=== PATIENT | female | born 1990 | race Caucasian/White ===

== ENCOUNTER 2021-08-26 06:19 | Emergency (ER) | payer SELFPAY ==
[2021-08-26] VITALS (8 sets, daily range): BP systolic 127–140; BP diastolic 68–92; PULSE 83–107; RESP 17–26; TEMP 36.4; O2SAT 98–100
--- NOTE | ~2021-08-26 | XR_ITS ---
EXAMINATION: XR chest 2V DATE: 08/26/2021 06:58 INDICATION: Heart fluttering TECHNIQUE: PA and lateral views of the chest were obtained. COMPARISON: Chest radiograph dated 08/08/2010 FINDINGS: Eventration along both the left and right sides of the diaphragm. Mild linear discoid atelectasis at the right lung base. No other airspace opacities, pulmonary edema, pleural effusion or pneumothorax. The cardiomediastinal silhouette is normal. Thoracolumbar 2 dextroscoliosis with upper thoracic levos coliosis. IMPRESSION: 1. No acute cardiopulmonary disease. Reviewed, dictated and finalized at location A.
--- NOTE | 2021-08-26 06:26 | ECG_ITS ---
Measurements Intervals [place] Rate: 106 P: 61 VT: 159 QRS: 70 QRSD: 104 T: 12 QT: 347 QTc: 461 Interpretive Statements SINUS TACHYCARDIA LEFT ATRIAL ENLARGEMENT INCOMPLETE RIGHT BUNDLE BRANCH BLOCK BORDERLINE T WAVE ABNORMALITY- ANTEROLAT/INF LEADS BASELINE ARTIFACT- I, II BORDERLINE ECG Electronically Signed On 08-26-2021 9:16:38 CDT by Ced Whipple D.O.
[2021-08-26 06:52] LABS: Basophils Percent Auto 0.4 % (0.2-1.2); Eosinophils Absolute Auto 0.1 K/mm3 (0-0.3); Eosinophils Percent Auto 1.7 % (0-4.4); Hematocrit 39.8 % (37.0-47.0); Hemoglobin 12.8 g/dL (12.0-15.0); Immature Granulocyte Absolute 0.02 K/mm3 (0.00-0.031); Immature Granulocyte Percent A 0.3 % (0-0.5); Lymphocytes Absolute Auto 1.67 K/mm3 (0.9-3.2); Lymphocytes Percent Auto 22.1 % (18.3-44.2); Mean Corpuscular HGB Conc 32.2 g/dl (32-36); Mean Corpuscular Hemoglobin 29.2 pg (26-34); Mean Corpuscular Volume 90.7 fl (80-100); Mean Platelet Volume 11.8 fl (7.4-10.4); Monocytes Absolute Auto 0.6 K/mm3 (0.1-0.6); Monocytes Percent Auto 8.1 % (2.6-8.5); Neutrophils Absolute Auto 5.1 K/mm3 (1.3-6.7); Neutrophils Percent Auto 67.4 % (45.5-73.1); Platelet Count Result 200 k/mm3 (150-375); Red Blood Count 4.39 M/mm3 (4.2-5.4); Red Cell Distribution Width 12.8 % (11.5-14.5); White Blood Count 7.5 K/mm3 (4.5-10.0)
[2021-08-26 07:03] LABS: Alanine Aminotransferase 19 U/L (6-35); Albumin Level 4.3 g/dL (3.5-5.1); Alkaline Phosphatase 74 U/L (38-126); Anion Gap 7 mmol/L (8-16); Aspartate Amino Transferase 26 U/L (14-36); Bilirubin,Total 0.4 mg/dL (0.2-1.3); Blood Urea Nitrogen 10 mg/dL (7-17); Calcium 8.8 mg/dL (8.4-10.2); Carbon Dioxide 24 mmol/L (22-30); Chloride 104 mmol/L (98-107); Estimated CRCL calculation 130 ml/min; Estimated Glomerular Filt Rate > 60; Glucose 112 mg/dL (65-110); Lipase 41 U/L (23-300); Potassium 3.6 mmol/L (3.4-5.0); Prothrombin Time 12.9 Seconds (11.1-14.7); Sodium 135 mmol/L (137-145)
[2021-08-26 07:04] LABS: Partial Thromboplastin Time 26.8 SECONDS (22.3-36.8)
[2021-08-26 07:14] LABS: Troponin I < 0.012 ng/mL (0.000-0.034)
--- NOTE | 2021-08-26 07:15 | ED.GENADULT ---
HPI - General Adult General Chief complaint: Arrhythmia/Palpitations Stated complaint: palpitations Time Seen by Provider: 08/26/21 06:52 History of Present Illness HPI narrative: 31-year-old female presenting to the emergency department for evaluation after having a suspected panic attack this morning. Patient states she showed up to work at 430 and had onset of an anxious feeling. Patient felt that she was breathing faster heart rate was increased and that she had numbness and tingling of her hands. Patient states she does have a history of anxiety but that she has never had a full panic attack. Patient states she feels significantly improved and denies any symptoms at this time. Patient has taken phentermine Related Data Allergies Allergy/AdvReac Type Severity Reaction Status Date / Time No Known Allergies Allergy Verified 08/26/21 06:36 Review of Systems Review of Systems: CONSTITUTIONAL: Denies fever, chills, or sweats. EYES: Denies visual changes, redness, or discharge. ENT: Denies rhinorrhea, congestion, sore throat, or otalgia. CARDIOVASCULAR: See HPI. RESPIRATORY: Denies cough or dyspnea. GASTROINTESTINAL: Denies abdominal pain, nausea, vomiting, or diarrhea. GENITOURINARY: Denies dysuria or hematuria. SKIN: Denies rash or itching. MUSCULOSKELETAL: Denies back pain, joint pain, or myalgia. NEUROLOGIC: Denies headache, numbness, or weakness. PSYCHIATRIC: Anxiety Exam Narrative: APPEARANCE: Well appearing, no pain, no distress, well-nourished. HEAD: normocephalic, atraumatic. EYES: PERRLA/EOMI, conjunctivae clear. NOSE: Normal no drainage EARS:TMS clear with good light reflex. THROAT: Pharynx clear, no exudate. NECK: Supple. No adenopathy, no masses. RESPIRATORY: Airway patent, respirations nonlabored. Clear to auscultation bilaterally, no rales, rhonchi, wheezing. CARDIOVASCULAR: Regular rate and rhythm without murmurs rubs or gallops. ABDOMINAL: Soft, nontender, nondistended, normal bowel sounds MUSCULOSKELETAL: Moves all extremities. Strength/ROM intact, No edema, No calf tenderness. NEURO: Alert. Cranial nerves II through XII intact. Grossly intact SKIN: Warm, dry. Normal Color Course Course Emergency Course: Patient felt back to her baseline while in the emergency department. Patient's tachycardia resolved. Patient was advised to stop taking her phentermine. All questions and concerns were addressed. Patient's labs are within normal limits. Vital Signs Vital signs: Vital Signs Temperature 97.6 F 08/26/21 06:20 Pulse Rate 103 H 08/26/21 06:20 Respiratory Rate 18 08/26/21 06:20 Blood Pressure 140/92 H 08/26/21 06:20 Pulse Oximetry 100 08/26/21 06:20 Oxygen Delivery Room Air 08/26/21 06:20 Temperature 97.6 F 08/26/21 06:20 Pulse Rate 83 08/26/21 08:13 Respiratory Rate 17 08/26/21 08:13 Blood Pressure 127/68 08/26/21 08:13 Pulse Oximetry 98 08/26/21 08:13 Oxygen Delivery Room Air 08/26/21 06:20 Medical Decision Making Vital Signs Vital Signs: Vital Signs Temperature 97.6 F 08/26/21 06:20 Pulse Rate 103 H 08/26/21 06:20 Respiratory Rate 18 08/26/21 06:20 Blood Pressure 140/92 H 08/26/21 06:20 Pulse Oximetry 100 08/26/21 06:20 Oxygen Delivery Room Air 08/26/21 06:20 Temperature 97.6 F 08/26/21 06:20 Pulse Rate 83 08/26/21 08:13 Respiratory Rate 17 08/26/21 08:13 Blood Pressure 127/68 08/26/21 08:13 Pulse Oximetry 98 08/26/21 08:13 Oxygen Delivery Room Air 08/26/21 06:20 Lab Data Lab results reviewed: Yes I reviewed the patient's lab results. Result diagrams: 08/26/21 06:47 08/26/21 06:47 Labs: Lab Results 08/26/21 08/26/21 08/26/21 Range/Units 06:47 06:47 06:47 WBC 7.5 (4.5-10.0) K/mm3 RBC 4.39 (4.2-5.4) M/mm3 Hgb 12.8 (12.0-15.0) g/dL Hct 39.8 (37.0-47.0) % MCV 90.7 (80-100) fl MCH 29.2 (26-34) pg MCHC 32.2 (32-36) g/dl RDW 1
[2021-08-26 07:20] LABS: Magnesium 1.7 mg/dL (1.6-2.3)
== END 2021-08-26 08:15 | disposition home or self-care (01) ==
PROVIDERS: Emergency Provider Emergency Medicine; PCP Emergency Medicine
DX: R00.2 Palpitations (principal); R41.9 Unspecified symptoms and signs involving cognitive functions and awareness; R00.0 Tachycardia, unspecified; R94.31 Abnormal electrocardiogram [ECG] [EKG]; I45.10 Unspecified right bundle-branch block
CPT/HCPCS: 36415; 71046; 80053; 81025; 83690; 83735; 84443; 84484; 85025; 85610; 85730; 93005; 99284

== ENCOUNTER → 2024-06-20 16:02 | Outpatient (REF) | payer BC, SELFPAY ==
--- OUTSIDE RECORDS SUMMARY | 2024-06-20 16:06 | XMS_ITS | Clinical Summary ---
Author Organization [facility] Address [facility] [place] [address] Care Team Providers Care Early Childhood Coordinator Name Role Phone Duncan Flaherty MD Primary Care Provider [phone] Allergies No known active allergies Medications etonogestrel (NEXPLANON) 68 MG SC implant 12/24/2022 Activ e venlafaxine (EFFEXOR) 37.5 MG tablet Take 1 tablet (37.5 mg total) by mouth daily. Active dextromethorphan -guaiFENesin ER (MUCINEX DM) 30-600 MG TABLET SR 12 HR 12 hr tablet Take 1 tablet by mouth every 12 (twelve) hours as needed. 28 tablet 11/23/2023 Active Family History Medical History Relation Comments Heart Disease Father No Known Problems Mother Relation Status Comments Father Mother Social History Tobacco Use Types Packs/Day Years Used Date Smoking Tobacco: Every Day Cigarettes Smokeless Tobacco: Never Tobacco Cessation:Ready to Q uit: Not Asked; Counseling Given: Not Answered Alcohol Use Standard Drinks/Week Comments Not Currently 0 (1 standard drink = 0.6 oz pur e alcohol) Comments No Sex and Gender Information Value Date Recorded Sex Assigned at Not on file Legal Sex Female 12:32 PM CDT Gender Identity Not on file Sexual Orientation Not on file Last Filed Vital Signs Vital Sign Reading Time Taken Comments Blood Pressure 110/62 11/23/2023 12:57 PM CDT Pulse 76 11/23/2023 12:57 PM CDT Temperature 36.9 C (98.4 F) 11/23/2023 12:57 PM CDT Respiratory Rate 16 11/23/2023 12:57 PM CDT Oxygen Saturation 99% 11/23/2023 12:57 PM CDT Inhaled Oxygen Concentration - - Weight 81.6 kg (180 lb) 11/23/2023 12:57 PM CDT Height 170.2 cm (5' 7 ) 11/23/2023 12:57 PM CDT Body Mass Index 28.19 11/23/2023 12:57 PM CDT Plan of Treatment Health Maintenance Due Date Last Done Comments Cervical Cancer Screening Pa p Smear (Age 30 to 64) Every 3 Years 1988 Annual Physical 07/11/1991 Hepatitis C 2006 DTaP, Tdap and Td Vaccines ( 1 - Tdap) 07/11/2007 Hepatitis B Vaccines (1 of 3 - 19+ 3-dose series) 07/11/2007 Pneumococcal Vaccine: Pediatrics (0 to 5 Years) and At-Risk Patients (6 to 49 Years) (1 of 2 - PCV) 07/11/2007 Cervical Cancer Screening Pa p with HPV Testing (Age 30 to 64) Every 5 Years 2018 Cervical Cancer Screening wi th HPV 2018 COVID-19 Vaccine (2023-2 5 season) 2023 07/23/2020, 06/27/2020 HPV Vaccines Aged Out No longer eligi ble based on patient's age to complete this topic Meningococcal B Vaccine Aged Out No l onger eligible based on patient's age to complete this topic Meningococcal Vaccine Aged Out No ana blair eligible based on patient's age to complete this topic RSV Immunizations Under 20 Months Aged Out No longer eligible b ased on patient's age to complete this topic Insurance [facility] Care Teams Early Childhood Coordinator Relationship Specialty Start Date End Date Duncan Flaherty MD [address] [place] [address] PCP - General FAMILY PRACTICE 11/23/23
--- OUTSIDE RECORDS SUMMARY | 2024-06-20 16:06 | XMS_ITS | Clinical Summary ---
Author Organization [address] Address [address] [place] [id number] Care Team Providers Care Call Person Name Role Phone Duncan Flaherty MD Primary Care Provider Allergies No known active allergies Medications etonogestreL (NEXPLANON) 68 mg implant 12/24/2022 Active venlafaxine (EFFEXOR) 37.5 mg tablet Take 1 tablet (37.5 mg total) by mouth daily Active Qsymia 3.75-23 mg capsule, ER multiphase 24 hr TAKE ONE CAPSULE BY MOUTH EVERY MORNING FOR 14 DAYS 07/24/2023 Active Active Problems No known active problems Social History Tobacco Use Types Packs/Day Years Used Date Smoking Tobacco: Never Assessed Comments Unknown Sex and Gender Information Value Date Recorded Sex Assigned at Not on file Legal Sex Female 7:19 AM CDT Gender Identity Not on file Sexual Orientation Not on file Obstetrics History Last Filed Vital Signs Vital Sign Reading Time Taken Comments Blood Pressure 121/73 08/03/2023 3:06 PM CDT Pulse 51 08/03/2023 3:06 PM CDT Temperature 36.9 C (98.5 F) 08/03/2023 3:06 PM CDT Respiratory Rate 16 08/03/2023 3:06 PM CDT Oxygen Saturation 99% 08/03/2023 3:06 PM CDT Inhaled Oxygen Concentration - - Weight 79.4 kg (175 lb) 08/03/2023 3:06 PM CDT Height 170.2 cm (5' 7 ) 08/03/2023 3:06 PM CDT Body Mass Index 27.41 08/03/2023 3:06 PM CDT Plan of Treatment Health Maintenance Due Date Last Done Comments Cervical Cancer Screening 1988 Depression Screening 1988 Hepatitis C Screening 1988 DTaP/Tdap/Td Vaccine (1 - Tdap) 07/11/1999 Varicella Vaccines (1 of 2 - 13+ 2-dose series) 2001 Hepatitis B Screening 2006 Regular Well Visit/Exam 18-64 2006 Covid-19 Vaccine (3 - 2023-2 5 season) 2023 07/23/2020, 06/27/2020 Influenza Vaccine (Season Ended) 2024 HPV Vaccines Aged Out No longer eligi ble based on patient's age to complete this topic Pneumococcal vaccine <65 Aged Out No longer eligible based on patient's age to complete this topic Insurance [employer] Care Teams Call Person Relationship Specialty Start Date End Date Duncan Flaherty MD [address] [address] PCP - General Family Medicine 08/03/23
--- OUTSIDE RECORDS SUMMARY | 2024-06-20 16:06 | XMS_ITS | Clinical Summary ---
Author Organization [facility] ui Address [address] [place] [address] Phone Care Team Providers Care Diesel Mechanic Name Role Phone Duncan Flaherty MD Primary Care Provider [phone] Allergies No known active allergies Medications etonogestreL (NEXPLANON) 68 mg Implant Active venlafaxine (EFFEXOR) 37.5 mg tablet Take 37.5 mg by mouth daily. Active amoxicillin-clav ulanate (AUGMENTIN) 875-125 mg tablet Take 1 Tablet by mouth every 12 hours for 10 days. 20 Tablet 06/12/2024 Active Active Problems Problem Noted Date Diagnosed Date Tobacco use 01/31/2018 c section 07/07 girl 07/08/2011 Headache(784.0) 06/17/2011 Encounters Date Type Department Care Team Description 06/14/2024 External Device Data ST[facility] ABSTRACTION Provider, Abstract 06/14/2024 External Device Data [facility] ABSTRACTION Provider, Abstract 06/14/2024 External Device Data [facility] ABSTRACTION Provider, Abstract 06/12/2024 6:19 AM CDT - 06/12/2024 8:13 AM CDT Emergency [facility] Emergency Department [address] [place] [address] Luiz Donnelly DO Facial cellulitis (Primary Dx) Discharge Disposition: Home or Self Care 06/12/2024 Travel from Last 3 Months Family History Medical History Relation Name Comments Healthy Mother Healthy Sister 1 Cancer Sister 2 Relation Name Status Comments Father Mother Alive Sister 1 Alive Sister 2 Alive Social History Tobacco Use Types Packs/Day Years Used Date Smoking Tobacco: Every Day Cigarettes Smokeless Tobacco: Never Tobacco Cessation:Ready to Q uit: Not Asked; Counseling Given: Not Answered Alcohol Use Standard Drinks/Week Comments No 0 (1 standard drink = 0.6 oz pur e alcohol) Feeling Safe Answer Date Recorded Are you in a relationship wi th someone who hurts you emotionally and/or physically? 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 Gender Identity Not on file Sexual Orientation Not on file Occupation Industry Job Start Date Job End Date Not on file Not on file Not on file Not on file Last Filed Vital Signs Vital Sign Reading Time Taken Comments Blood Pressure 107/69 06/12/2024 8:10 AM CDT Pulse 59 06/12/2024 8:10 AM CDT Temperature 36.8 C (98.3 F) 06/12/2024 8:10 AM CDT Respiratory Rate 16 06/12/2024 8:10 AM CDT Oxygen Saturation 100% 06/12/2024 8:10 AM CDT Inhaled Oxygen Concentration - - Weight 86.2 kg (190 lb) 06/12/2024 6:30 AM CDT Height 170.2 cm (5' 7 ) 06/12/2024 6:30 AM CDT Body Mass Index 29.76 06/12/2024 6:30 AM CDT Plan of Treatment Health Maintenance Due Date Last Done Comments Pre-Diabetes and Diabetes Screening 1988 DTAP/TDAP/TD VACCINES (1 - Tdap) 07/11/2007 HEPATITIS B VACCINES (1 of 3 - 19+ 3-dose series) 07/11/2007 INFLUENZA VACCINE (#1) 2023 PAP SMEAR 09/16/2025 09/16/2022, 10/07/2019 CERVICAL CANCER SCREENING 09/17/2027 HPV/Cotest (21-29) 09/17/2027 09/16/2022, 10/07/2019 HPV/Cotest (30-65) 09/17/2027 09/16/2022, 10/07/2019 HPV VACCINES Aged Out No longer eligi ble based on patient's age to complete this topic Medical Devices Implanted Type Area Owner Manager Device Identifier Shelf Expiration Date Model / Serial / Lot Barrier Interceed Adh 3x4in 4350 - [id number] \ Implanted:Qty : 1 on 07/08/2011 by Mindi Martin RN at [facility] Adhesion Barrier Bilateral: Uterus 11/08/2015 4350 / [id number] / [id number] Procedures Procedure Name Priority Date/Time Associated Diagnosis Comments CT SINUS FACIAL BONES W CONTRAST Stat 06/12/2024 7:26 AM CDT POC LACTIC ACID Stat 06/12/2024 6:51 AM CDT BLOOD GAS VENOUS Stat 06/12/2024 6:51 AM CDT POC CREATININE Stat 06/12/2024 6:48 AM CDT HCG QUALITATIVE, SERUM Stat 06/12/2024 6:43 AM CDT C-REACTIVE PROTEIN Stat 06/12/2024 6: 43 AM CDT SEDIMENTATION RATE Stat 06/12/2024 6: 43 AM CDT COMPREHENSIVE METABOLIC PANEL Stat 06/12/2024 6:43 AM CDT CBC WITH DIFFERENTIAL Stat 06/12/2024 6:43 AM CDT CERV/VAG CYTO AGE BASED SCREEN PAP Routine 09/16/2022 5:53 PM CDT Screening for cervical cancer Encounter for gynecological examination without abnormal finding from Last 3 Months or Most Recently Relevant to Health Maintenance Results * CT SINUS FACIAL BONES W CONTRAST (06/12/2024 7:26 AM CDT) Anatomical Region Laterality Modality Head Computed Tomogra phy 06/12/2024 7:28 AM CDT Impressions 06/12/2024 7:46 AM CDT IMPRESSION: 1. Suspected infectious/inflammatory cutaneous lesion in the left face with underlying fat stranding DICTATION LOCATION: Location 1 - [facility] Narrative 06/12/2024 7:[address] SINUS FACIAL BONES WITH CONTRAST WITH REFORMATTED IMAGES DATE: 06/12/2024 7:26 AM HISTORY: left facial swelling. Facial cellulitis COMPARISON: None. TECHNIQUE: Isovoxel with reformats with IV contrast. The examination was performed with the adjustment of mA according to the patient size and/or the use of Iterative Reconstruction Technique. CONTRAST: IOPAMIDOL 61 % INTRAVENOUS SOLUTION (MULTI-DOSE BULK PACK) Given:90 mL FINDINGS: There is mild fat stranding in the subcutaneous fat overlying the left hemimandible. This appears a more superficial with a focal cutaneous lesion in this region measuring 9 mm x 5 mm. There is no bone destruction. There is no significant odontogenic infection on imaging. There is a mucous retention cyst in the right maxillary sinus. Procedure Note Rigo Kaur MD - 06/12/2024 CT SINUS FACIAL BONES WITH CONTRAST WITH REFORMATTED IMAGES DATE: 06/12/2024 7:26 AM HISTORY: left facial swelling. Facial cellulitis COMPARISON: None. TECHNIQUE: Isovoxel with reformats with IV contrast. The examination was performed with the adjustment of mA according to the patient size and/or the use of Iterative Reconstruction Technique. CONTRAST: IOPAMIDOL 61 % INTRAVENOUS SOLUTION (MULTI-DOSE BULK PACK) Given:90 mL FINDINGS: There is mild fat stranding in the subcutaneous fat overlying the left hemimandible. This appears a more superficial with a focal cutaneous lesion in this region measuring 9 mm x 5 mm. There is no bone destruction. There is no significant odontogenic infection on imaging. There is a mucous retention cyst in the right maxillary sinus. IMPRESSION: 1. Suspected infectious/inflammatory cutaneous lesion in the left face with underlying fat stranding DICTATION LOCATION: Location 1 - [facility] Luiz Donnelly DO CT ORDERABLES Final Resul t * POC LACTIC ACID (06/12/2024 6:51 AM CDT) LACTIC ACID POC 0.8 <=2.0 mmol/L 06/12/2024 6:51 AM CDT [facility] SPECIMEN SOURCE, GASES POC Venous 06/12/2024 6:51 AM CDT [facility] COMMENT, GASES POC Responsible Clinical Caregiver notified 06/12/2024 6:51 AM T [facility] Blood 06/12/2024 6:5 1 AM CDT 06/12/2024 6:53 AM CDT Luiz Donnelly DO POINT OF CARE TESTING Final Result [facility] - [facility] CLIA# [id number] [address] [place] [address] * BLOOD GAS VENOUS (06/12/2024 6:51 AM CDT) PH BLOOD POC 7.39 7.32 - 7.43 06/12/2024 6:51 AM T [facility] PCO2 POC 48 38 - 50 mm Hg 06/12/2024 6:51 AM T [facility] PO2 POC 35 25 - 40 mm Hg 06/12/2024 6:51 AM T [facility] HCO3 (CALC) POC 29 22 - 29 mmol/L 06/12/2024 6:51 AM [facility] - [facility] HEMOGLOBIN POC 13.3 11.8 - 14.8 g/dL 06/12/2024 6:51 AM [facility] O2 SATURATION POC 60 40 - 70 % 06/12/2024 6:51 AM [facility] HEMATOCRIT POC 40 36 - 44 % 06/12/2024 6:51 AM T [facility] Comment:Estimated Value PH TEMP CORRECT 7.39 7.32 - 7.43 06/12/2024 6:51 AM T [facility] PCO2 TEMP CORRECT 48 38 - 50 mm Hg 06/12/2024 6:51 AM T [facility] PO2 TEMP CORRECT 35 25 - 40 mm Hg 06/12/2024 6:51 AM CDT [facility] SPECIMEN SOURCE, GASES POC Venous 06/12/2024 6:51 AM CDT [facility] COMMENT, GASES POC Responsible Clinical Caregiver notified 06/12/2024 6:51 AM CDT [facility] PATIENT'S TEMPERATURE POC 37.0 degrees 06/12/2024 6:51 AM CDT [facility] Blood, venous 06/12/2024 6:5 1 AM CDT 06/12/2024 6:53 AM CDT Luiz Donnelly DO ABG ORDERABLES Final Resul t Performing Organization Address City/[facility]/ZIP Co de Phone Number [facility] CLIA# [id number] [address] [place] [address] * POC CREATININE (06/12/2024 6:48 AM CDT) CREATININE POC 0.80 0.50 - 1.00 mg/dL 06/12/2024 6:48 AM CDT [facility] GFR POC >60 >=60 mL/min/1.7 3 sq meter 06/12/2024 6:48 AM CDT [facility] Comment:eGFR calculated with 2020 CKD-EPI equation. Vegetarian diet, extremely high or low muscle mass, and may affect results. Cystatin C with Glomerular Filtration Rate is a suitable alternative for these patients. Blood, whole 06/12/2024 6:48 AM CDT 06/12/2024 6:52 AM CDT Luiz Donnelly DO POINT OF CARE TESTING Final Result [facility] CLIA# [id number] [address] [place] [address] * HCG QUALITATIVE, BLOOD (06/12/2024 6:43 AM CDT) [facility] HCG QUAL, BLOOD Negative Negative 06/12/2024 7:13 AM CDT [facility] Blood Venipuncture / Unknown 06/12/2024 6:43 AM CDT 06/12/2024 6:48 AM CDT Luiz Donnelly DO CHEMISTRY ORDERABLES Final Result [facility] CLIA# [id number] [address] [facility] [address] [place] [address] * CBC WITH DIFFERENTIAL (06/12/2024 6:43 AM CDT) [facility] WBC 6.3 4.0 - 9.8 K/uL 06/12/2024 7:01 AM T [facility] RBC 4.32 3.90 - 4.90 M/uL 06/12/2024 7:01 AM T [facility] HEMOGLOBIN 13.3 11.8 - 14.8 g/dL 06/12/2024 7:01 AM T [facility] HEMATOCRIT 41.3 35.5 - 44.0 % 06/12/2024 7:01 AM T [facility] MCV 95.6 82.0 - 99.0 fL 06/12/2024 7:01 AM T [facility] MCH 30.8 27.2 - 32.6 pg 06/12/2024 7:01 AM CDT [facility] - [facility] MCHC 32.2 31.5 - 35.5 g/dL 06/12/2024 7:01 AM CDT [facility] RDW 13.7 11.5 - 14.5 % 06/12/2024 7:01 AM CDT [facility] RDW-STDEV 48.5 37.1 - 48.7 fL 06/12/2024 7:01 AM CDT [facility] PLATELETS 225 140 - 350 K/uL 06/12/2024 7:01 AM CDT [facility] MPV 11.8 9.3 - 12.4 fL 06/12/2024 7:01 AM T [facility] NEUTROPHILS 54 % 06/12/2024 7:01 AM T [facility] LYMPHOCYTES 30 % 06/12/2024 7:01 AM T [facility] MONOCYTES 8 % 06/12/2024 7:01 AM CDT [facility] EOSINOPHILS 7 % 06/12/2024 7:01 AM CDT [facility] BASOPHILS 1 % 06/12/2024 7:01 AM T [facility] IMMATURE GRANULOCYTES 0 % 06/12/2024 7:01 AM T [facility] NEUTROPHIL ABSOLUTE 3.43 1.90 - 7.00 K/uL 06/12/2024 7:01 AM T [facility] LYMPHOCYTE ABSOLUTE 1.86 0.70 - 4.50 K/uL 06/12/2024 7:01 AM CDT [facility] MONOCYTE ABSOLUTE 0.50 0.10 - 1.30 K/uL 06/12/2024 7:01 AM T [facility] EOSINOPHIL ABSOLUTE 0.45 0.00 - 0.70 K/uL 06/12/2024 7:01 AM T [facility] BASOPHILS ABSOLUTE 0.05 0.00 - 0.20 K/uL 06/12/2024 7:[address] [facility] IMMATURE GRANULOCYTES ABSOLUTE 0.02 0.00 - 0.03 K/uL 06/12/2024 7:01 AM [facility] Blood Venipuncture / Unknown 06/12/2024 6:43 AM CDT 06/12/2024 6:48 AM CDT Luiz Donnelly DO HEMATOLOGY ORDERABLES Final Result [facility] - [facility] CLIA# [id number] [address] [place] [address] * SEDIMENTATION RATE (06/12/2024 6:43 AM CDT) ESR (SEDIMENTATION RATE) 6 <=20 mm/Hr 06/12/2024 7:23 AM CDT [facility] Blood Venipuncture / Unknown 06/12/2024 6:43 AM CDT 06/12/2024 6:48 AM CDT Luiz Donnelly DO HEMATOLOGY ORDERABLES Final Result [facility] CLIA# [id number] [address] [place] [address] * C-REACTIVE PROTEIN (06/12/2024 6:43 AM CDT) Pathologist [facility] CRP <3.0 <5.0 mg/L 06/12/2024 7:35 AM CDT [facility] Blood Venipuncture / Unknown 06/12/2024 6:43 AM CDT 06/12/2024 6:48 AM CDT Luiz Donnelly DO CHEMISTRY ORDERABLES Final Result Performing Organization Address City/[facility]/ZIP Co de Phone Number [facility]# [id number] [address] [place] [address] * (ABNORMAL) COMPREHENSIVE METABOLIC PANEL (06/12/2024 6:43 AM CDT) Pathologist [facility] SODIUM 138 136 - 145 mmol/L 06/12/2024 7:35 AM CDT [facility] POTASSIUM 4.2 3.5 - 5.0 mmol/L 06/12/2024 7:35 AM CDT [facility] CHLORIDE 106 98 - 107 mmol/L 06/12/2024 7:35 AM CDT [facility] SERVICES [facility] CO2 25 22 - 29 mmol/L 06/12/2024 7:35 AM [facility] - [facility] CALCIUM 9.2 8.6 - 10.2 mg/dL 06/12/2024 7:[address] [facility] - . [facility] BUN 13 6 - 20 mg/dL 06/12/2024 7:35 AM [facility] CREATININE 0.75 0.51 - 0.95 mg/dL 06/12/2024 7:35 AM [facility] GLUCOSE 86 74 - 99 mg/dL 06/12/2024 7:35 AM [facility] TOTAL PROTEIN 6.5(L) 6.7 - 8.6 g/dL 06/12/2024 7:35 AM [facility] [employer] [facility] ALBUMIN 4.1 3.5 - 5.2 g/dL 06/12/2024 7:35 AM [facility] [employer] [facility] BILIRUBIN TOTAL 0.4 0.0 - 1.2 mg/dL 06/12/2024 7:35 AM [facility] ALKALINE PHOSPHATASE 62 35 - 104 U/L 06/12/2024 7:35 AM [facility] AST 23 <33 U/L 06/12/2024 7:35 AM [facility] ALT 14 <34 U/L 06/12/2024 7:35 AM [facility] GFR >60 >=60 mL/min/1.7 3 sq meter 06/12/2024 7:35 AM [facility] [facility] Comment:eGFR calculated with 2020 CKD-EPI equation. Vegetarian diet, extremely high or low muscle mass, and may affect results. Cystatin C with Glomerular Filtration Rate is a suitable alternative for these patients. ANION GAP 7(L) 8 - 16 mmol/L 06/12/2024 7:35 AM [facility] [employer] [facility] Blood Venipuncture / Unknown 06/12/2024 6:43 AM CDT 06/12/2024 6:48 AM [facility] LABORAT[facility] - 06/12/2024 7:35 AM CDT Samples containing indocyanine green cause interferences on Total and/or Direct Bilirubin and must not be measured. Luiz Donnelly DO CHEMISTRY ORDERABLES Final Result [facility] CLIA# [id number] [address] [place] [address] * CERV/VAG CYTO AGE BASED SCREEN PAP (09/16/2022 5:53 PM CDT) COMMENT (PAP): [facility] [place] Comment: This order for age-based cervical cancer and STI screening follows ACOG guidelines(PB 168, 140, FCE717). See individual assays for performing site location. CLINICAL INFORMATION [facility] [place] Comment:None given LAST MENSTRUAL PERIOD [facility] [place] Comment:09/08/2022 PREV PAP: [facility] [place] Comment:NONE GIVEN PREV BX: [facility] [place] Comment:NONE GIVEN SOURCE [facility] [place] Comment:Endocervix ADEQUACY: [facility] [place] Comment: Satisfactory for evaluation. Endocervical/transformation zone component present. PAP INTERP [facility] [place] Comment: Cytology Results: Negative for intraepithelial lesion or malignancy. COMMENT (PAP TEST) [facility] [place] Comment: This Pap test has been evaluated with computer assisted technology. EMAIL MARKETING PROCESSOR: [facility] [place] Comment: LM, CT(ASCP) CT screening location: [place] [address] [address] [address] EXPLANATORY NOTE [facility] [place] Comment: EXPLANATORY NOTE: The Pap is a screening test for cervical cancer. It is not a diagnostic test and is subject to false negative and false positive results. It is most reliable when a satisfactory sample, regularly obtained, is submitted with relevant clinical findings and history, and when the Pap result is evaluated along with historic and current clinical information. HPV E6/E7 Not Detected Not Detected [facility] [place] Comment: Methodology: Business Services Analyst-Mediated Amplification This assay detects E6/E7 viral messenger RNA (mRNA) from 14 high-risk HPV types (16,18,31,33,35,39,45,51,52,56,58,59,66,68). Cervical sources are required for HPV testing. If a vaginal source from a patient who has had a total hysterectomy with removal of cervix was submitted, please contact the testing laboratory for alternative testing options. For additional information, please refer to http://[employer].Wid[employer]ix/faq/GIX988l9 (This link if provided for information/ educational purposes only.) C TRAC RNA NOT DETECTED NOT DETECTED [facility] [place] N.GONORRHOEAE RNA, TMA NOT DETECTED NOT DETECTED [facility] [place] COMMENT INFECTIOUS DISEASE [facility] [place] Comment: The analytical performance characteristics of this assay, when used to test SurePath(TM) specimens have been determined by [facility]. The modifications have not been cleared or approved by the FDA. This assay has been validated pursuant to the CLIA regulations and is used for clinical purposes. For additional information, please refer to https://[employer]/faq/ZUV274 (This link is being provided for information/ educational purposes only.) Test Performed at: [facility] [address] [place] [address] Jose Alfredo Tavares MD Genital SWAB OF ENDOCERVIX / Unknown 09/16/2022 5:53 PM CDT 09/17/2022 3:36 AM CDT Alexey Le MD PATHOLOGY/CYTOLOGY ORDERABLES Fi nal Result Performing Organization Address City/State/[facility] Co de Phone Number [facility] [address] [phone] [facility] [address] [address] [place] [address] from Last 3 Months or Most Recently Relevant to Health Maintenance Insurance [facility] BLUE ACCESS CHOICE Advance Directives For more information, please contact: [phone] * Full Code (Latest Code Status on File) Date Activated Date Inactivated Comments 07/08/2011 1:28 PM 07/11/2011 2:05 PM * Full Code Date Activated Date Inactivated Comments 06/17/2011 2:35 PM 06/17/2011 6:42 PM Care Teams Diesel Mechanic Relationship Specialty Start Date End Date Duncan Flaherty MD [address] [place] [phone] PCP - General Family Practice 02/08/23
--- OUTSIDE RECORDS SUMMARY | 2024-06-20 16:06 | XMS_ITS | Referral Summary ---
Author Organization [address] Address [address] [place] [id number] Care Team Providers Care Social Media Community Manager Name Role Phone Duncan Flaherty MD Primary [...] 08/03/2023 3:06 PM CDT Plan of Treatment Not on file Insurance [employer] ACCESS CHOICE Care Teams Social Media Community Manager Relationship Specialty Start Date End Date Duncan Flaherty MD [address] [place] [address] PCP - General Family Medicine 08/03/23
--- OUTSIDE RECORDS SUMMARY | 2024-06-20 16:06 | XMS_ITS | Clinical Summary ---
Author Organization [facility] Address [address] [facility] [place] [address] Care Team Providers Care Stock Replenisher Name Role Phone Marvel Noel MD Primary Care Provider [phone] Source Comments [facility],non-owned Affiliates and Associated Physician Practices is amultiple site organization consisting of ambulatory clinics and hospital sitesin [place], [place], [place] and [place]. This disclosure is being madepursuant to the Care Everywhere program and may not contain all information available regarding this patient. Last updated 17.[facility] Allergies No known active allergies Medications * Be aware that medications may not be up to date on this document. Alwaysverify current medications with the patient. etonogestrel (NEXPLANON) 68 MG implant Active benzonatate (TESSALON) 200 MG capsuleIndicatio ns:Acute bronchitis, unspecified organism Take 1 capsule by mouth 3 times daily as needed for Cough 30 capsule 05/25/2018 Active Active Problems No known active problems Social History Tobacco Use Types Packs/Day Years Used Date Smoking Tobacco: Every Day Smokeless Tobacco: Never Comments No Sex and Gender Information Value Date Recorded Sex Assigned at Not on file Legal Sex Female 9:32 AM CDT Gender Identity Not on file Sexual Orientation Not on file Last Filed Vital Signs Vital Sign Reading Time Taken Comments Blood Pressure 118/62 05/25/2018 3:46 PM CDT Pulse 84 05/25/2018 3:46 PM CDT Temperature 36.8 C (98.2 F) 05/25/2018 3:46 PM CDT Respiratory Rate 14 05/25/2018 3:46 PM CDT Oxygen Saturation 98% 05/25/2018 3:46 PM CDT Inhaled Oxygen Concentration - - Weight 90.7 kg (200 lb) 05/25/2018 3:46 PM CDT Height 170.2 cm (5' 7 ) 05/25/2018 3:46 PM CDT Body Mass Index 31.32 05/25/2018 3:46 PM CDT Plan of Treatment Health Maintenance Due Date Last Done Comments HIV SCREENING 07/11/2003 HEPATITIS C SCREENING 07/06/2006 DTAP/TDAP/TD VACCINES (1 - Tdap) 07/11/2007 HEPATITIS B VACCINE (1 of 3 - 19+ 3-dose series) 07/11/2007 COVID-19 VACCINE (1 - 2023-2 5 season) 2023 DEPRESSION SCREENING 02/10/2024 INFLUENZA VACCINE (Season Ended) 2024 ZOSTER VACCINE (1 of 2) 2038 HIB VACCINE Aged Out No longer eligi ble based on patient's age to complete this topic HPV VACCINE Aged Out No longer eligi ble based on patient's age to complete this topic MENINGOCOCCAL (Group B) VACC INE SHARED DECISION-MAKING Aged Out No longer eligibl e based on patient's age to complete this topic MENINGOCOCCAL GROUPS A/C/Y/W VACCINE Aged Out No longer eligible b ased on patient's age to complete this topic PNEUMOCOCCAL VACCINE Aged Out No long er eligible based on patient's age to complete this topic Insurance [facility] [employer] Care Teams Stock Replenisher Relationship Specialty [place] [address] [place] [address] PCP - General Internal Medicine 05/25/18
== END ==
LOC: ANHLAB 16:02
PROVIDERS: PCP Emergency Medicine; Visit Provider Plastic Surgery
DX: L72.0 Epidermal cyst (principal)
CPT/HCPCS: 88305